=== PATIENT | male | born 1965 | race Caucasian/White ===

== ENCOUNTER → 2019-05-11 09:45 | Outpatient (CLI) | payer OTHER, SELFPAY ==
[2019-05-11 12:25] LABS: Anion Gap 9 (5-15); BUN 17 mg/dL (7-18); BUN/Creat Ratio 13.7 RATIO (10-20); Calcium,Total 9.1 mg/dL (8.5-10.1); Chloride 104 mmol/L (98-107); Cholesterol 270 mg/dL (200); Creatinine, Serum 1.24 mg/dL (0.70-1.30); EST Glomerular Filtration Rate 65 mL/min (>60); Est Glom Filt Rate - Afr Amer 79 mL/min (>60); Glucose 105 mg/dL (74-106); High Density Lipoprotein 42 mg/dL; PSA,Total - Annual Screen 0.35 ng/mL (0.00-4.00); Potassium 4.2 mmol/L (3.5-5.1); Sodium Level 139 mmol/L (136-145); Triglycerides 357 mg/dL; Very Low Density Lipoprotein 71 mg/dL (5-40)
== END ==
PROVIDERS: Family Provider Family Medicine; PCP Family Medicine; Referring Provider Family Medicine; Visit Provider Family Medicine
DX: I10 Essential (primary) hypertension (principal); Z12.5 Encounter for screening for malignant neoplasm of prostate
CPT/HCPCS: 36415; 80048; 80061; 84153; G0103

== ENCOUNTER → 2019-07-06 08:15 | Outpatient (CLI) | payer OTHER, SELFPAY ==
[2019-07-06 10:57] LABS: AST(SGOT) 23 U/L (15-37); Alanine Aminotransfer ALT/SGPT 51 U/L (16-61); Albumin, Serum 4.2 g/dL (3.2-5.0); Alkaline Phosphatase 70 U/L (45-117); Cholesterol 178 mg/dL (200); Globulin 3.6 g/dL (2.2-4.2); High Density Lipoprotein 48 mg/dL; Protein, Total 7.8 g/dL (6.4-8.2); Triglycerides 143 mg/dL; Very Low Density Lipoprotein 29 mg/dL (5-40)
== END ==
LOC: MFPLAB 08:16
PROVIDERS: PCP Family Medicine; Referring Provider Family Medicine; Visit Provider Family Medicine
DX: E78.5 Hyperlipidemia, unspecified (principal)
CPT/HCPCS: 36415; 80061; 80076

== ENCOUNTER → 2019-08-21 08:15 | Outpatient (CLI) | payer OTHER, SELFPAY ==
[2019-08-21 10:44] LABS: Anion Gap 6 (5-15); BUN 19 mg/dL (7-18); BUN/Creat Ratio 15.4 RATIO (10-20); Calcium,Total 8.9 mg/dL (8.5-10.1); Chloride 107 mmol/L (98-107); Creatinine, Serum 1.23 mg/dL (0.70-1.30); EST Glomerular Filtration Rate 65 mL/min (>60); Est Glom Filt Rate - Afr Amer 79 mL/min (>60); Glucose 115 mg/dL (74-106); Potassium 4.3 mmol/L (3.5-5.1); Sodium Level 140 mmol/L (136-145)
== END ==
PROVIDERS: PCP Family Medicine; Referring Provider Family Medicine; Visit Provider Family Medicine
DX: I10 Essential (primary) hypertension (principal)
CPT/HCPCS: 36415; 80048

== ENCOUNTER → 2020-03-19 16:02 | Outpatient (CLI) | payer BC, SELFPAY ==
[2020-03-20 09:50] LABS: ALB/GLOB Ratio 1.2 RATIO (0.9-2.4); AST(SGOT) 34 U/L (15-37); Alanine Aminotransfer ALT/SGPT 68 U/L (16-61); Albumin, Serum 4.2 g/dL (3.2-5.0); Alkaline Phosphatase 61 U/L (45-117); Anion Gap 4 (5-15); BUN 16 mg/dL (7-18); BUN/Creat Ratio 12.6 RATIO (10-20); Chloride 101 mmol/L (98-107); Cholesterol 202 mg/dL (200); Creatinine, Serum 1.27 mg/dL (0.70-1.30); EST Glomerular Filtration Rate 63 mL/min (>60); Est Glom Filt Rate - Afr Amer 76 mL/min (>60); Globulin 3.4 g/dL (2.2-4.2); Glucose 69 mg/dL (74-106); High Density Lipoprotein 44 mg/dL; Potassium 3.9 mmol/L (3.5-5.1); Protein, Total 7.6 g/dL (6.4-8.2); Sodium Level 137 mmol/L (136-145); Triglycerides 387 mg/dL; Very Low Density Lipoprotein 77 mg/dL (5-40)
== END ==
PROVIDERS: PCP Family Medicine; Referring Provider Family Medicine; Visit Provider Family Medicine
DX: I10 Essential (primary) hypertension (principal); E78.5 Hyperlipidemia, unspecified; Z12.5 Encounter for screening for malignant neoplasm of prostate
CPT/HCPCS: 36415; 80053; 80061

== ENCOUNTER → 2020-09-18 08:24 | Outpatient (CLI) | payer BC, SELFPAY ==
[2020-09-18 10:44] LABS: Anion Gap 5 (5-15); BUN 20 mg/dL (7-18); BUN/Creat Ratio 16.4 RATIO (10-20); Calcium,Total 9.2 mg/dL (8.5-10.1); Chloride 107 mmol/L (98-107); Cholesterol 181 mg/dL (200); Creatinine, Serum 1.22 mg/dL (0.70-1.30); EST Glomerular Filtration Rate 66 mL/min (>60); Est Glom Filt Rate - Afr Amer 80 mL/min (>60); Glucose 112 mg/dL (74-106); High Density Lipoprotein 47 mg/dL; PSA,Total - Annual Screen 0.43 ng/mL (0.00-4.00); Sodium Level 138 mmol/L (136-145); Triglycerides 150 mg/dL; Very Low Density Lipoprotein 30 mg/dL (5-40)
== END ==
PROVIDERS: PCP Family Medicine; Referring Provider Family Medicine; Visit Provider Family Medicine
DX: I10 Essential (primary) hypertension (principal); E78.5 Hyperlipidemia, unspecified; Z12.5 Encounter for screening for malignant neoplasm of prostate
CPT/HCPCS: 36415; 80048; 80061; 84153; G0103

== ENCOUNTER → 2021-10-01 | Outpatient (CLI) | payer BC, SELFPAY ==
[2021-10-01 10:15] LABS: ALB/GLOB Ratio 1.1 RATIO (0.9-2.4); AST(SGOT) 25 U/L (15-37); Alanine Aminotransfer ALT/SGPT 47 U/L (16-61); Alkaline Phosphatase 62 U/L (45-117); Anion Gap 8 (5-15); BUN 18 mg/dL (7-18); Calcium,Total 8.9 mg/dL (8.5-10.1); Chloride 103 mmol/L (98-107); Cholesterol 213 mg/dL (200); Creatinine, Serum 1.29 mg/dL (0.70-1.30); EST Glomerular Filtration Rate 61 mL/min (>60); Est Glom Filt Rate - Afr Amer 74 mL/min (>60); Globulin 3.6 g/dL (2.2-4.2); Glucose 121 mg/dL (74-106); High Density Lipoprotein 50 mg/dL; PSA,Total - Annual Screen 0.33 ng/mL (0.00-4.00); Potassium 3.9 mmol/L (3.5-5.1); Protein, Total 7.6 g/dL (6.4-8.2); Sodium Level 138 mmol/L (136-145); Triglycerides 200 mg/dL; Very Low Density Lipoprotein 40 mg/dL (5-40)
== END | disposition home or self-care (01) ==
LOC: MFPLAB 08:01
PROVIDERS: PCP Family Medicine; Referring Provider Family Medicine; Visit Provider Family Medicine
DX: E78.5 Hyperlipidemia, unspecified (principal); Z12.5 Encounter for screening for malignant neoplasm of prostate
CPT/HCPCS: 36415; 80053; 80061; 84153; G0103

== ENCOUNTER → 2022-09-29 | Outpatient (CLI) | payer BC, SELFPAY ==
[2022-09-29 10:34] LABS: ALB/GLOB Ratio 1.2 RATIO (0.9-2.4); AST(SGOT) 23 U/L (15-37); Alanine Aminotransfer ALT/SGPT 46 U/L (16-61); Albumin, Serum 4.1 g/dL (3.2-5.0); Alkaline Phosphatase 63 U/L (45-117); Anion Gap 3 (5-15); BUN 20 mg/dL (7-18); BUN/Creat Ratio 15.9 RATIO (10-20); Calcium,Total 9.3 mg/dL (8.5-10.1); Chloride 107 mmol/L (98-107); Cholesterol 200 mg/dL (200); Creatinine, Serum 1.26 mg/dL (0.70-1.30); EST Glomerular Filtration Rate 63 mL/min (>60); Est Glom Filt Rate - Afr Amer 76 mL/min (>60); Globulin 3.4 g/dL (2.2-4.2); Glucose 125 mg/dL (74-106); High Density Lipoprotein 47 mg/dL; Potassium 4.4 mmol/L (3.5-5.1); Protein, Total 7.5 g/dL (6.4-8.2); Sodium Level 136 mmol/L (136-145); Triglycerides 182 mg/dL; Very Low Density Lipoprotein 36 mg/dL (5-40)
== END | disposition home or self-care (01) ==
LOC: MFPLAB 08:49
PROVIDERS: PCP Family Medicine; Visit Provider Family Medicine
DX: E78.5 Hyperlipidemia, unspecified (principal)
CPT/HCPCS: 36415; 80053; 80061

== ENCOUNTER → 2022-10-14 | Outpatient (CLI) | payer BC, SELFPAY ==
[2022-10-14 18:33] LABS: PSA,Total - Annual Screen 0.32 ng/mL (0.00-4.00)
== END | disposition home or self-care (01) ==
LOC: MFPLAB 16:31
PROVIDERS: PCP Family Medicine; Visit Provider Family Medicine
DX: Z12.5 Encounter for screening for malignant neoplasm of prostate (principal)
CPT/HCPCS: 36415; 84153; G0103

== ENCOUNTER → 2023-04-13 | Outpatient (CLI) | payer BC, SELFPAY ==
[2023-04-13 11:14] LABS: Anion Gap 6 (5-15); BUN 19 mg/dL (7-18); BUN/Creat Ratio 14.2 RATIO (10-20); Calcium,Total 9.3 mg/dL (8.5-10.1); Chloride 103 mmol/L (98-107); Creatinine, Serum 1.34 mg/dL (0.70-1.30); EST Glomerular Filtration Rate 58 mL/min (>60); Est Glom Filt Rate - Afr Amer 71 mL/min (>60); Glucose 122 mg/dL (74-106); Potassium 4.2 mmol/L (3.5-5.1); Sodium Level 136 mmol/L (136-145)
== END | disposition home or self-care (01) ==
LOC: MFPLAB 08:07
PROVIDERS: PCP Family Medicine; Visit Provider Family Medicine
DX: I10 Essential (primary) hypertension (principal)
CPT/HCPCS: 36415; 80048

== ENCOUNTER → 2023-10-14 | Outpatient (CLI) | payer BC, SELFPAY ==
[2023-10-14 15:55] LABS: ALB/GLOB Ratio 1.2 RATIO (0.9-2.4); AST(SGOT) 25 U/L (15-37); Alanine Aminotransfer ALT/SGPT 37 U/L (16-61); Alkaline Phosphatase 57 U/L (45-117); Anion Gap 5 (5-15); BUN 18 mg/dL (7-18); BUN/Creat Ratio 15.3 RATIO (10-20); Calcium,Total 9.2 mg/dL (8.5-10.1); Chloride 107 mmol/L (98-107); Cholesterol 169 mg/dL (200); Creatinine, Serum 1.18 mg/dL (0.70-1.30); EST Glomerular Filtration Rate 68 mL/min (>60); Est Glom Filt Rate - Afr Amer 82 mL/min (>60); Globulin 3.2 g/dL (2.2-4.2); Glucose 108 mg/dL (74-106); High Density Lipoprotein 46 mg/dL; Potassium 3.9 mmol/L (3.5-5.1); Protein, Total 7.2 g/dL (6.4-8.2); Sodium Level 137 mmol/L (136-145); Triglycerides 144 mg/dL; Very Low Density Lipoprotein 29 mg/dL (5-40)
== END | disposition home or self-care (01) ==
LOC: MTLAB 12:46
PROVIDERS: PCP Family Medicine; Referring Provider Family Medicine; Visit Provider Family Medicine
DX: R73.01 Impaired fasting glucose (principal)
CPT/HCPCS: 36415; 80053; 80061

== ENCOUNTER 2024-03-05 08:21 | Observation (INO) | payer BC, SELFPAY ==
[2024-03-05] VITALS (7 sets, daily range): BP systolic 140–209; BP diastolic 73–170; PULSE 60–78; RESP 15–18; TEMP 36.6–36.8; O2SAT 96–99; BMI 29.7
--- NOTE | 2024-03-05 09:21 | EKG12_ITS ---
Test Reason : CP Blood Pressure : / mmHG Vent. Rate : 067 BPM Atrial Rate : 067 BPM P-R Int : 130 ms QRS Dur : 094 ms QT Int : 422 ms P-R-T Axes : 042 043 058 degrees QTc Int : 445 ms Normal sinus rhythm Normal ECG Confirmed by Andrew Gray ([id number]), videotape editor CRISS KINCAID ([id number]) on 03/06/2024 10:06:26 AM Referred By: Confirmed By:Andrew Gray
--- NOTE | 2024-03-05 09:21 | ED.VIS.CHEST ---
HPI History of Present Illness Chief Complaint: Chest Pain Informant: patient and spouse/S.O. Narrative Narrative: 58-year-old male presenting to the emergency room for the evaluation of intermittent chest pain. Patient states that he has been experiencing intermittent tightness in his mid chest. States it feels different than his rare indigestion. When this comes on he has discomfort in his mid back. He notes some chronic left shoulder issues but does not feel like that has been affected. He notes some associated shortness of breath at times. States he recently did a bike ride was going up a small hill and had to discontinue the effort due to symptoms. He notes no personal familial history of coronary artery disease but states that his sister has mitral valve prolapse and his mother has atrial fibrillation. He is treated for hypertension and dyslipidemia. He wears CPAP at night. He states it has been about 25 years since he had a stress test. He notes that he gets symptoms both at exertion and at rest now. Symptoms seem to have been worsening over the past couple weeks. He notes increasing fatigue particularly at evening time. [facility] Medical History (Updated 03/05/24 @ 09:[address] Kyle Decker DO) Obstructive sleep apnea Hypercholesterolemia Hypertension Home Medications ?Medication ?Instructions ?Recorded ?Last Taken ?Type atorvastatin 20 mg tablet 20 mg PO QDAY 09/21/23 Unknown History hydrochlorothiazide 25 mg tablet 25 mg PO QDAY 09/21/23 Unknown History lisinopril 40 mg tablet 40 mg PO QDAY 09/21/23 Unknown History Allergy/AdvReac Type Severity Reaction Status Date / Time No Known Allergies Allergy Verified 03/05/24 08:24 Social History Smoking Status: Never smoker [facility] ED Constitutional Constitutional ED: Denies chills, fever(s) or weight loss Eyes Eyes: Denies change in vision or diplopia ENT ENT ED: Denies ear pain, rhinorrhea or sore throat Cardiovascular Cardiovascular: Reports chest pain; Denies orthopnea, palpitations or racing heartbeat Respiratory/Chest Respiratory/Chest: Reports dyspnea and dyspnea on exertion; Denies cough or orthopnea Gastrointestinal Gastrointestinal: Denies abdominal pain, diarrhea, nausea or vomiting Genitourinary Genitourinary ED: Denies dysuria, hematuria or urinary frequency Musculoskeletal Musculoskeletal: Reports back pain; Denies arthralgias or myalgias Integumentary Denies abscess or rash Neurologic Neurologic: Denies headache(s) or weakness Psychiatric Psychiatric: Denies anxiety, depression, suicidal ideation or suicidal thoughts Endocrine Endocrinology: Denies polydipsia, polyphagia or polyuria Allergic/Immunologic Allergic/Immunologic ED: Denies mouth swelling, tongue swelling or urticaria EXAM Physical Exam Const Vital Signs: 03/05/24 08:21 03/05/24 09:21 03/05/24 09:28 Temperature 98 F Temperature Source Oral Pulse Rate 71 67 Respiratory Rate 18 18 Blood Pressure 209/170 H 153/73 H Blood Pressure Mean 183 99 Pulse Ox 99 96 Oxygen Delivery Method Room Air Room Air 03/05/24 10:00 Temperature Temperature Source Pulse Rate 71 Respiratory Rate 17 Blood Pressure 151/82 H Blood Pressure Mean 105 Pulse Ox 98 Oxygen Delivery Method Room Air Positive well nourished and well developed General Appearance ED: well developed HEENT Reports normocephalic, head/scalp atraumatic and moist mucous membranes Eyes PERRL and EOMs intact bilaterally Neck no lymphadenopathy, supple and no JVD Resp normal respiratory effort and clear to auscultation bilaterally Cardio regular rate, regular rhythm and no murmurs GI normal to inspection, nondistended, normoactive bowel sounds and non-tender Palpation: soft Back/Spine no CVA tenderness and normal ROM Extremity normal to inspection General Extremety ED: Negative for edema General Extremity: Negative for edema Neuro oriented x3 and CN's II-XII intact bilaterally Sensorium / Orientation: alert Motor Exam: strength 5/5 throughout Psych mental status grossly normal Mood & Affect: Negative for depressed or tearful Skin no rashes or lesions noted and no wounds Heart Score History: Moderately Suspicious ECG: Normal Age: >45 - <65 years Risk Factors: 1 or 2 Risk Factors Troponin: </= Normal Limit Score: 3 MDM MDM MDM Narrative Medical decision making narrative: Differential diagnosis includes but not limited to acute coronary syndrome unstable angina hypertension aortic dissection/aneurysm pulmonary embolism pneumothorax esophageal chest wall EKG shows a normal sinus rhythm with no ST depression or elevation but the patient is also asymptomatic. His troponin is 4. Creatinine 1.27 hemoglobin 14.6 white count is 7 platelet count of 252. My independent interpretation the chest x-ray is no acute process. Patient's heart score is 3. I sat down and discussed the above results with the patient and his . Using shared decision making I will discuss with the hospitalist regarding admission for stress testing/further evaluation. History & Record Review Discussion w/independent historian: Patient and Significant other Lab Data Attestation: I reviewed the patient's lab results. Labs: Laboratory Results - last 24 hr 03/05/24 08:44 WBC 7.0 RBC 5.08 Hgb 14.6 Hct 44.0 MCV 86.6 MCH 28.7 MCHC 33.2 RDW Std Deviation 38.5 RDW Coeff of Avinash 12.0 Plt Count 232 MPV 10.7 Immature Gran % (Auto) 0.600 Neut % (Auto) 69.7 Lymph % (Auto) 20.3 [place] % (Auto) 7.6 Eos % (Auto) 1.1 Baso % (Auto) 0.7 Absolute Neuts (auto) 4.9 Absolute Lymphs (auto) 1.42 Nucleated RBC % 0 Sodium 139 Potassium 3.9 Chloride 103 Carbon Dioxide 27.0 Anion Gap 9 BUN 18 Creatinine 1.27 Estim Creat Clear Calc 83.29 Est GFR (MDRD) Af Amer 75 Est GFR (MDRD) Non-Af 62 BUN/Creatinine Ratio 14.2 Glucose 122 H Calcium 9.5 Troponin I High Sens 4 EKG Initial EKG: Attestation: I personally reviewed and interpreted this EKG as follows: Comments: Normal sinus rhythm ventricular rate of 67 bpm Management Discussion w/another healthcare provider: Hospitalist Discharge Plan Triage Chief Complaint: Chest Pain ED Provider: Kyle Decker Dx/Rx/DC Orders Prescriptions: No Action lisinopril 40 mg tablet 40 mg PO QDAY atorvastatin 20 mg tablet 20 mg PO QDAY hydrochlorothiazide 25 mg tablet 25 mg PO QDAY Primary Care Provider: Brody Casper Referrals: Brody Casper MD [Primary Care Provider] - Print Language: Amharic
[2024-03-05] MEDS: Aspirin 81 MG TAB.CHEW 324 MG PO (09:28)
[2024-03-05 09:31] LABS: Absolute Lymphocyte Count 1.42 X10^3/uL (0.83-4.51); Absolute Neutrophil Count 4.9 X10^3/uL (2.0-7.7); Basophil# 0.05 X10^3/uL; Basophil% 0.7 % (0-1); Eosinophil# 0.08 X10^3/uL; Eosinophils% 1.1 % (0-5); Hemoglobin 14.6 g/dL (13.0-16.5); Lymphocyte # 1.42 X10^3/ul (0.83-4.51); Lymphocyte % 20.3 % (19-41); Mean Corp Hgb Conc 33.2 g/dL (32-36); Mean Corpuscular Hgb 28.7 pg (27.0-32.0); Mean Corpuscular Volume 86.6 fL (80-94); Mean Platelet Vol. 10.7 fl (6.2-12.0); Monocyte# 0.53 X10^3/uL; Monocyte% 7.6 % (0-10); NRBC Flagged by Analyzer 0 % (0-5); Neutrophil # 4.88 X10^3/uL (2.7-7.7); Neutrophil % 69.7 % (47-70); Platelet Count 232 K/mm3 (150-450); RBC Distribution Width SD 38.5 fl (35.1-43.9); Red Blood Count 5.08 M/mm3 (4.6-6.2)
[2024-03-05 09:43] LABS: Anion Gap 9 (5-15); BUN 18 mg/dL (7-18); BUN/Creat Ratio 14.2 RATIO (10-20); Calcium,Total 9.5 mg/dL (8.5-10.1); Chloride 103 mmol/L (98-107); Creatinine, Serum 1.27 mg/dL (0.70-1.30); EST Glomerular Filtration Rate 62 mL/min (>60); Est Glom Filt Rate - Afr Amer 75 mL/min (>60); Estimated Creatinine Clearance 83.29 ml/min; Glucose 122 mg/dL (74-106); Potassium 3.9 mmol/L (3.5-5.1); Sodium Level 139 mmol/L (136-145); Troponin-I HS (w/2H Reflex) 4 pg/mL (3.0-78.0)
--- NOTE | 2024-03-05 09:55 | RAD_ITS ---
STUDY: X-RAY CHEST REASON FOR EXAM: Male, 58 years old. Chest pain TECHNIQUE: Single AP portable view of the chest. COMPARISON: Comparison is made with prior study dated October 06, 2006. FINDINGS: EKG electrodes are seen. The lungs are clear and expanded. There is no demonstrated pleural abnormality. Normal size heart. Normal mediastinum and kavita. Normal visualized pulmonary arteries. Normal visualized aortic arch and descending thoracic aorta. Normal visualized thoracic spine. Normal visualized ribs, clavicles, and shoulders. There is no demonstrated abnormality of the visualized soft tissue structures of the upper abdomen. RAD/Chest 1 View (Portable) IMPRESSION: Normal x-ray examination of the chest. Electronically Signed: Omari Sesay MD at 10:26 EDT ,
--- NOTE | 2024-03-05 10:37 | NURSING ---
DR CANALES FOR DR GOLDEN
[2024-03-05 11:22] LABS: Troponin-I HS 6 pg/mL (3.0-78.0)
[2024-03-05 11:25] LABS: Reflex Troponin-HS? (from REC) Y
--- NOTE | 2024-03-05 12:30 | PCM.HP.STD ---
HPI - General General Date of Admission: 03/05/24 HPI Narrative CARMEN GOMEZ, is a 58 M who presents to the hospital with substernal chest pain. He says it has been intermittent for the last couple of weeks but he is noticed now that laying down can make him a little bit short of breath and that it was occurring at rest as well. He says that he rides his bike and was going up a hill that he normally goes up and was unable to make it up and jokingly called that his stress test. He came in today because of the continuation of his chest pain. He denies radiation of the chest pain though he cannot quite tell if it was going to his left shoulder. He also has chronic back and shoulder pain as well. In the ER troponins were negative x 2 and EKG was nonischemic. He does not have a significant family history of heart disease. [facility] Medical History (Updated 03/05/24 @ 10:[address] Kyle Decker DO) Obstructive sleep apnea Hypercholesterolemia Hypertension Home Medications ?Medication ?Instructions ?Recorded ?Last Taken ?Type atorvastatin 20 mg tablet 20 mg PO QDAY 09/21/23 03/05/24 History hydrochlorothiazide 25 mg tablet 25 mg PO QDAY 09/21/23 03/05/24 History lisinopril 40 mg tablet 40 mg PO QDAY 09/21/23 03/05/24 History coenzyme Q10 PO DAILY supplement 03/05/24 03/05/24 History Allergy/AdvReac Type Severity Reaction Status Date / Time No Known Allergies Allergy Verified 03/05/24 08:24 no significant family history no surgical history Social History Smoking Status: Never smoker ROS Constitutional Constitutional: Denies chills, fatigue, fever(s) or malaise Eyes Eyes: Denies blurry vision ENT HEENT: Denies headache(s) or nasal discharge Cardiovascular Cardiovascular: Reports chest pain; Denies dyspnea on exertion or syncope Respiratory/Chest Respiratory/Chest: Reports shortness of breath at rest; Denies cough or shortness of breath with exertion Gastrointestinal Gastrointestinal: Denies constipation, diarrhea, nausea or vomiting Genitourinary Genitourinary: Denies dysuria Neurologic Neurologic: Denies focal weakness, numbness or tremor(s) Psychiatric Psychiatric: Denies anxiety or depression Vital Signs Vital Signs Vital Signs: 03/05/24 08:21 03/05/24 09:21 03/05/24 09:28 Temperature 98 F Temperature Source Oral Pulse Rate 71 67 Respiratory Rate 18 18 Blood Pressure 209/170 H 153/73 H Blood Pressure Mean 183 99 Blood Pressure Source Blood Pressure Position Blood Pressure Location Pulse Ox 99 96 Oxygen Delivery Method Room Air Room Air 03/05/24 10:00 03/05/24 10:40 03/05/24 11:00 Temperature 98 F Temperature Source Pulse Rate 71 78 62 Respiratory Rate 17 18 15 Blood Pressure 151/82 H 143/78 H 141/76 H Blood Pressure Mean 105 99 97 Blood Pressure Source Blood Pressure Position Blood Pressure Location Pulse Ox 98 97 96 Oxygen Delivery Method Room Air 03/05/24 11:34 Temperature 98.2 F Temperature Source Oral Pulse Rate 60 Respiratory Rate 16 Blood Pressure 140/73 H Blood Pressure Mean 95 Blood Pressure Source Monitor Blood Pressure Position Semi-Fowlers Blood Pressure Location Right Arm Pulse Ox 99 Oxygen Delivery Method Room Air Weight Weight: 231 lb 7.766 oz Body Mass Index (BMI) 29.7 Physical Exam Narrative General: Alert, Oriented x3, Cooperative, No apparent distress HEENT: Atraumatic, PERRLA, EOMI, Normocephalic Oral: Moist Mucosa Neck: Supple, No JVD Lungs: Diminished, Normal air movement, No rhonchi, No wheeze, No rales Cardiovascular: Regular rate, Regular Rhythm, Normal S1, Normal S2, No murmurs Abdomen: Soft, Non Tender, Non-Distended, No Hepato-splenomegaly Extremities: No edema, Capillary Refill Less than 3 Seconds Skin: No rashes, No breakdown Musculoskeletal: No Tenderness to Palpation of Joints or Extremities Neurological: No focal neurological deficits, Motor Exam 5/5 strength throughout, Sensory exam intact to light touch and pain Psych/Mental Status: Normal Affect, Appropriate Results Lab / Micro Data 03/05/24 08:44 03/05/24 08:44 Labs: Laboratory Results - last 24 hr 03/05/24 08:44: WBC 7.0, RBC 5.08, Hgb 14.6, Hct 44.0, MCV 86.6, MCH 28.7, MCHC 33.2, RDW Std Deviation 38.5, RDW Coeff of Avinash 12.0, Plt Count 232, MPV 10.7, Immature Gran % (Auto) 0.600, Neut % (Auto) 69.7, Lymph % (Auto) 20.3, [place] % (Auto) 7.6, Eos % (Auto) 1.1, Baso % (Auto) 0.7, Absolute Neuts (auto) 4.9, Absolute Lymphs (auto) 1.42, Nucleated RBC % 0, Sodium 139, Potassium 3.9, Chloride 103, Carbon Dioxide 27.0, Anion Gap 9, BUN 18, Creatinine 1.27, Estim Creat Clear Calc 83.29, Est GFR (MDRD) Af Amer 75, Est GFR (MDRD) Non-Af 62, BUN/Creatinine Ratio 14.2, Glucose 122 H, Calcium 9.5, Troponin I High Sens 4 03/05/24 10:53: Troponin I High Sens 6 Imaging Radiology Impression Chest X-Ray 03/05/24 09:55 IMPRESSION: Normal x-ray examination of the chest. Electronically Signed: Omari Sesay MD at 10:26 EDT , Assessment & Plan Assessment/Plan (1) Chest pain: PLAN: Plan 1. Chest pain/essential HTN/HLD ? 2 troponins were negative, will attempt to obtain a stress test today, EKG was unremarkable ? Continue with his home hydrochlorothiazide and lisinopril ? Continue with Lipitor ? Will monitor make adjustments as necessary DVT: Ambulation 75 minutes was spent on direct patient care, including documentation as well as chart review and collaboration with colleagues Charges/Coding Visit Charges Inpatient E&M: 61602 Init Hosp L3
--- NOTE | 2024-03-05 14:01 | STRESSREP ---
Stress Test Report Date: 03/05/2024 Procedure: Exercise tolerance test/imaging study Indications: Chest pain Consent: Per the patient Procedure: The patient exercised on a Slade protocol for 9 minutes achieving a peak heart rate of 150 bpm (92% predicted maximal heart rate) with a peak blood pressure 190/72 mmHg and a peak MET capacity of 10.1 METs. The baseline ECG demonstrated normal sinus rhythm. The peak exercise ECG demonstrated no significant ischemic changes. EKG during recovery revealed no significant ischemic changes [There were no cardiac dysrhythmias pretest, during exercise, or recovery]. The functional capacity was considered excellent for age. There was [no complaint of chest discomfort during exercise or recovery]. The examination was discontinued secondary to achieving target heart rate. Impression: 1. Technically adequate (percent predicted maximal heart rate greater than 85%) exercise tolerance test 2. Stress test is negative for exercise-induced EKG changes of ischemia 3. The test test is negative for exercise-induced chest pain 4. Functional capacity is excellent for age 5. Nuclear images pending Myocardial perfusion imaging study: Technique: The patient was injected with 14.6 mCi of technetium 99m Cardiolite and subsequently rest SPECT Cardiolite nuclear imaging was obtained in the horizontal long, vertical long, and short axis views. The patient exercised on a Slade protocol. Please see above for details. The patient was injected with 44.7 mCi of technetium 99m Cardiolite and subsequently stress SPECT Cardiolite nuclear imaging was obtained in the horizontal long, vertical long, and short axis views. A gated Cardiolite study at peak stress was obtained. Interpretation: Rest and stress SPECT Cardiolite nuclear imaging status post realignment, normalization, and attenuation correction, demonstrates no evidence of significant ischemia or infarction. The gated Cardiolite study demonstrates no significant regional wall motion abnormalities. The reported LVEF is greater than 70%. Impression: 1. There is no evidence of significant ischemia or infarction. 2. The gated Cardiolite study reports an LVEF of greater than 70%. This note was generated with [employer] software. It may contain incorrect words, spelling, and punctuation that were not noted in checking the note before signing.
[2024-03-05 15:01] LABS: Troponin-I HS 7 pg/mL (3.0-78.0)
--- NOTE | 2024-03-05 15:07 | DCINST_ITS ---
Discharge Instructions Diet Discharge Diet: Low fat / Low cholesterol Activity Discharge Activity: Return to Normal Activity Dressing / Incision Call your doctor if you observe: Fever of 101 or Higher, Shortness of breath, Dizziness, Fainting spells, Swelling in the ankles, Chest pain and Increased palpitations (irregular heartbeat) Follow Up Care Test Results: Test results from this visit will be discussed in further detail at your follow- up appointment, if applicable. Discharge Plan Admission Admit Date/Time: 03/05/24 10:47 Attending Provider: Lamont Montgomery Primary Care Provider: Brody Casper Discharge Orders/Prescriptions Prescriptions: Continued lisinopril 40 mg tablet 40 mg PO QDAY atorvastatin 20 mg tablet 20 mg PO QDAY hydrochlorothiazide 25 mg tablet 25 mg PO QDAY coenzyme Q10 [CoQ-10] PO DAILY Referrals / Follow Up: Brody Casper MD [Primary Care Provider] - Within 1 Week Disposition Disposition (needs filled in before D/C Order can be placed): Home, Self Care
--- NOTE | 2024-03-05 15:29 | CASEMGMT ---
Patient has order for discharge. RN CM in to discuss needs at discharge. Patient denies needs or help at discharge. Patient had no further questions or concerns.
== END 2024-03-05 15:08 | disposition home or self-care (01) ==
LOC: ED 10:29 → PCU 11:03
PROVIDERS: Admitting Provider Family Medicine; Emergency Provider Emergency Medicine; PCP Family Medicine; Visit Provider Family Medicine
DX: R07.89 Other chest pain (principal); E78.00 Pure hypercholesterolemia, unspecified; R06.02 Shortness of breath; I10 Essential (primary) hypertension; G47.33 Obstructive sleep apnea (adult) (pediatric); Z79.899 Other long term (current) drug therapy
CPT/HCPCS: 36415; 71045; 78452; 80048; 84484; 85025; 93005; 93017; 99284; A9500; A4216

== ENCOUNTER 2024-06-23 10:39 | Emergency (ER) | payer BC, SELFPAY ==
[2024-06-23 10:40] VITALS: BP 161/89; PULSE 68; RESP 20; TEMP 36; O2SAT 100; BMI 30.7
[2024-06-23 10:42] VITALS: BP 161/89; PULSE 68; RESP 16; O2SAT 100
--- NOTE | 2024-06-23 10:51 | EX.ED.DYSGE1 ---
HPI History of Present Illness Chief Complaint: Foreign Body [facility] Medical History (Updated 06/23/24 @ 12:[address] Kamron Forrest DO) Obstructive sleep apnea Hypercholesterolemia Hypertension Home Medications ?Medication ?Instructions ?Recorded ?Last Taken ?Type atorvastatin 20 mg tablet 20 mg PO QDAY 09/21/23 06/23/24 History hydrochlorothiazide 25 mg tablet 25 mg PO QDAY 09/21/23 06/23/24 History lisinopril 40 mg tablet 40 mg PO QDAY 09/21/23 06/23/24 History coenzyme Q10 PO DAILY supplement 03/05/24 03/05/24 History sulfamethoxazole 800 1 tab PO BID 5 days #10 tabs 06/23/24 Unknown Rx mg-trimethoprim 160 mg tablet (Bactrim DS) Allergy/AdvReac Type Severity Reaction Status Date / Time No Known Allergies Allergy Verified 06/23/24 10:51 Social History Smoking Status: Never smoker EXAM Physical Exam Const Vital Signs: 06/23/24 10:40 06/23/24 10:42 06/23/24 10:48 Temperature 96.8 F L Temperature Source Temporal Pulse Rate 68 68 Respiratory Rate 20 H 16 Respiratory Effort Normal Respiratory Pattern Normal Blood Pressure 161/89 H 161/89 H Blood Pressure Mean 113 113 Pulse Ox 100 100 Oxygen Delivery Method Room Air Room Air 06/23/24 13:17 Temperature 98.2 F Temperature Source Pulse Rate 64 Respiratory Rate 17 Respiratory Effort Respiratory Pattern Blood Pressure 128/72 H Blood Pressure Mean 90 Pulse Ox 98 Oxygen Delivery Method [facility] MDM MDM Narrative Medical decision making narrative: HISTORY OF PRESENT ILLNESS: 58-year-old male presents with concern for foreign body in right leg. Notes he accidentally shot a tiny nail/staple into his right leg above the right knee. He notes his last tetanus shot was in 2019. REVIEW OF SYSTEMS: Pertinent positives: Wound Pertinent negatives: active bleeding, numbness PHYSICAL EXAM: Nursing triage notes reviewed, Vital signs reviewed Constitutional: please see mdm Extremities: No edema Neuro: intact sensation L1-S1 dermatomal distributions. Intact 5/5 strength in hip flexion (T12-L3). Knee extension (L2-L4). Ankle dorsiflexion (L4-L5). Ankle plantar flexion (S1). Great toe extension (L5). 2+ patellar and Achilles DTRs. Skin: Small punctate lesion noted to the anterior thigh, no palpable foreign body noted MEDICAL DECISION MAKING: Chief Complaint: Wound, foreign body External records reviewed: Reviewed prior imaging, reviewed allergies Factors affecting care: hypertension Social determinants of health: none History obtained from others: none Consults: none MDM Narrative: Patient was initially hemodynamically stable, afebrile nontoxic-appearing. Exam small punctate lesion. No palpable foreign body noted. After signed consent: Attempted to inject a small amount of lidocaine (2% with epinephrine) and dissect down approximately 5 mm without successful removal. I then obtained an x-ray. X-ray was read reviewed personally myself showed an obvious foreign body along the anterior thigh. I then tried to dissect approximately 0.5 inches down but cannot locate or remove the foreign body. This point in the risk of inducing injury bleeding and infection was higher than benefit removing foreign body. Will give prophylactic antibiotics (Bactrim) and provide wound care here in the ED as well as give the patient close outpatient orthopedic follow-up. The patient and/or family, caregivers express understanding. The patient and/or family, caregivers agrees with the plan. Shared decision making: I will have a discussion with the patient and or visitors regarding risk/benefits of further testing or admission. They will be made aware of of the risk/benefits inherent in this decision they will be given the opportunity to voice understanding. Total critical care time today provided was at least 0 minutes. This excludes separately billable procedures. Critical care time (if documented) is secondary to the patient having high probability of clinically significant/life threatening deterioration in the patient's condition which required my urgent intervention. Impression: 1. Metallic foreign body Dispo: Discharge home This note was generated with [employer] dictation software. It may contain incorrect words, spelling, and punctuation that were not noted in review of the chart prior to signing. Radiography Diagnostic Testing: Clinical Impression(s) from Imaging Studies Femur X-Ray 06/23/24 11:39 IMPRESSION: Metallic foreign body as described above. Electronically Signed: Raghavendra Queen MD at 13:43 EST , Discharge Plan Triage Chief Complaint: Foreign Body ED Provider: Kamron Forrest Dx/Rx/DC Orders Clinical Impression: Foreign bodies Instructions: ED Foreign Body Soft Tissue Prescriptions: New sulfamethoxazole-trimethoprim [Bactrim DS] 800-160 mg tablet 1 tab PO BID 5 Days Qty: 10 0RF No Action lisinopril 40 mg tablet 40 mg PO QDAY atorvastatin 20 mg tablet 20 mg PO QDAY hydrochlorothiazide 25 mg tablet 25 mg PO QDAY coenzyme Q10 [CoQ-10] PO DAILY Primary Care Provider: Brody Casper Referrals: Avery Espinoza MD [Med Staff - Active Staff] - Activity Restrictions/Additional Instructions: Thank you for trusting us with your care today! Please take Tylenol (2 pills, 650 mg), ibuprofen (2 pills, 400 mg) every 6 hours as needed for pain and fever control. Please take antibiotics until course complete Please return to the emergency department if your symptoms change or worsen. Specifically if you notice redness, warmth, swelling, white-yellow discharge, increasing pain or fever. These are signs of infection. Please return immediately if the signs develop. Please follow with your primary care physician for further outpatient evaluation and management. Print Language: Togolese Disposition Disposition: Home, Self Care Discharge Date/Time: 06/23/24 13:18
[2024-06-23] MEDS: Lidocaine 2% /Epi 1:100 (20ml) 20 ML VIAL INFILT (11:11)
--- NOTE | 2024-06-23 11:39 | RAD_ITS ---
INDICATION: foreign body in distal medial upper leg EXAMINATION/TECHNIQUE: X-RAY - RIGHT XR Femur Min 2 Views 4 VIEWS COMPARISON: No relevant prior comparison study available FINDINGS: SOFT TISSUES: No soft tissue swelling or gas. Linear metallic foreign body in the soft tissues of the anterior right lower thigh measuring about 3 cm BONES/JOINTS: No acute fracture or subluxation.. Degenerative spur of the superior aspect of the patella. Preservation of the joint space.. No sclerotic or destructive changes observed. RAD/Femur Min 2 Views IMPRESSION: Metallic foreign body as described above. Electronically Signed: Raghavendra Queen MD at 13:43 EST ,
[2024-06-23 13:17] VITALS: BP 128/72; PULSE 64; RESP 17; TEMP 36.8; O2SAT 98
== END 2024-06-23 13:18 | disposition home or self-care (01) ==
PROVIDERS: Emergency Provider Emergency Medicine; PCP Family Medicine; Visit Provider Emergency Medicine
DX: S71.141A Puncture wound with foreign body, right thigh, initial encounter (principal); W29.4XXA Contact with nail gun, initial encounter; I10 Essential (primary) hypertension; E78.00 Pure hypercholesterolemia, unspecified; G47.33 Obstructive sleep apnea (adult) (pediatric); Z53.8 Procedure and treatment not carried out for other reasons; Z79.899 Other long term (current) drug therapy
CPT/HCPCS: 10120; 73552; 99283